=== PATIENT | male | born 1965 | race Caucasian/White ===

== ENCOUNTER 2022-10-15 11:57 | Emergency (ER) | payer MEDICAID ==
[~2022-10-15] VITALS: Ht 172.7 cm; Wt 75.0 kg
[2022-10-15] MEDS ORDERED: ACETAMINOPHEN 325MG TABLET PO ONE (14:45)
[2022-10-15] MEDS ORDERED: IBUPROFEN 400MG TABLET PO ONE (14:45)
[2022-10-15 15:10] VITALS: BP 118/80
== END 2022-10-15 15:14 | disposition home or self-care (01) ==
LOC: ER 12:05
DX: R51.9 Headache, unspecified (principal)
CPT/HCPCS: 99284

== ENCOUNTER 2022-10-15 18:02 | Emergency (ER) | payer MEDICAID ==
[~2022-10-15] VITALS: Ht 188 cm; Wt 80.0 kg
[2022-10-15 20:32] LABS: BASOPHILS % 0.6 % (0.0-2.0); EOSINOPHILS % 0.6 % (0.0-5.0); HEMATOCRIT. 41.4 % (42.0-52.0); HEMOGLOBIN. 14.1 g/dL (14.0-18.0); LYMPHOCYTES % 35.5 % (20.0-50.0); MEAN CORPUSCULAR HEMOGLOBIN 29.9 pg (28.0-32.0); MEAN CORPUSCULAR VOLUME 87.8 fL (80.0-94.0); MEAN PLATELET VOLUME 7.5 fl (7.4-10.4); NEUTROPHILS % 55.3 % (40.0-76.0); PLATELET 327 x1000/uL (130-400); RED BLOOD CELL COUNT 4.72 mill/uL (4.7-6.1); RED CELL DISTRIBUTION WIDTH 15.5 % (11.6-14.6)
[2022-10-15 20:39] LABS: CHLORIDE 106 mEq/L (98-107)
[2022-10-15 20:46] LABS: ETHANOL BLOOD < 10 mg/dL
[2022-10-15] MEDS ORDERED: POTASSIUM CHLORIDE 20MEQ/PACKET PO NR (22:00)
[2022-10-16 12:36] VITALS: BP 127/83
== END 2022-10-16 12:38 | disposition home or self-care (01) ==
LOC: ER 18:02
DX: R68.89 Other general symptoms and signs (principal)
CPT/HCPCS: 36415; 80053; 80307; 80320; 80329; 85025; 99283; G0480